=== PATIENT | female | born 1960 | race Caucasian/White ===

== ENCOUNTER → 2019-01-21 | Outpatient (CLI) | payer OTHER ==
--- NOTE | 2019-01-21 10:13 | RAD ---
MRI Lumbar Spine without contrast History: Low back pain, left leg radiculopathy Technique: Multiplanar, multi sequential noncontrast MR imaging was performed of the lumbar spine. Comparison: None Findings: Lumbar vertebral body stature is overall maintained. AP alignment is within normal limits. There is moderate to severe degenerative disc disease L5-S1. Conus terminates at L1. There is nonspecific edema of the posterior subcutaneous fat of the lower back. There are small anterior annular tears L3-4 and L4-L5. There is mild L5-S1 endplate edema likely reactive/degenerative in etiology. L3-L4: There is prominence of epidural fat posteriorly and in the lateral recesses bilaterally with mild attenuation of the thecal sac. There is mild buckling of the ligamentum flavum and facet degenerative change. There is negligible disc osteophyte complex. Neural foramina are adequate. L4-L5: There is prominence of epidural fat posteriorly, to a lesser degree in the lateral recesses bilaterally with mild attenuation of the thecal sac. There is mild buckling of the ligamentum flavum and right greater than left facet degenerative change. There is some fluid in the right facet articulation. There is minimal narrowing of the right neural foramen, left neural foramen adequate. L5-S1: There is circumferential prominence of epidural fat beginning at the mid aspect of L5 with effacement of subarachnoid space extending into the sacrum. There is minimal disc osteophyte complex and shallow protrusion without significant impingement of the descending S1 nerve roots. There is minimal disc osteophyte complex also in the inferior neural foramina bilaterally. There is minimal buckling of the ligamentum flavum and facet degenerative change. There is very mild neural foramina compromise greater on the left. Disc osteophyte complex is near the proximal extraforaminal left L5 nerve root. Impression: 1. There is moderate to severe degenerative disc disease at L5-S1 mild endplate edema at this level likely reactive/degenerative in etiology. There is minimal spondylosis. There is no significant lumbar neural foramina compromise, very mild narrowing bilaterally at L5-S1 and on the right at L4-5. There is multilevel epidural lipomatosis most notable of the mid aspect of L5 into the sacrum at which there is effacement of subarachnoid space, mild attenuation of the thecal sac at L4-5 and L3-4 by epidural lipomatosis. Disc osteophyte complex is near the proximal extraforaminal left L5 nerve root. Electronically signed by: Asael Arredondo MD (01/21/2019 10:10 AM) [id number]
== END | disposition home or self-care (01) ==
LOC: MRI 09:08
DX: M51.37 Other intervertebral disc degeneration, lumbosacral region (principal); M47.817 Spondylosis without myelopathy or radiculopathy, lumbosacral region; M25.78 Osteophyte, vertebrae
CPT/HCPCS: 72148